=== PATIENT | male | born 2000 | race Asian ===

== ENCOUNTER 2020-01-16 20:59 | Emergency (ER) | payer OTHER ==
[~2020-01-16] VITALS: Ht 180.3 cm; Wt 83.9 kg
[2020-01-16 21:33] VITALS: BP 150/80; TEMP 98.9
== END 2020-01-16 21:45 | disposition home or self-care (01) ==
LOC: ED 20:59
DX: J20.9 Acute bronchitis, unspecified (principal)
CPT/HCPCS: 99282

== ENCOUNTER 2022-11-13 21:06 | Emergency (ER) | payer OTHER ==
[~2022-11-13] VITALS: Ht 180.3 cm; Wt 72.6 kg
[2022-11-13 21:33] VITALS: BP 113/66; TEMP 98.2
== END 2022-11-13 21:52 | disposition left against medical advice (07) ==
LOC: ED 21:06
DX: S00.531A Contusion of lip, initial encounter (principal); W50.0XXA Accidental hit or strike by another person, initial encounter; Y92.89 Other specified places as the place of occurrence of the external cause
CPT/HCPCS: 99282